=== PATIENT | female | born 1970 | race Caucasian/White ===

== ENCOUNTER 2019-12-04 06:23 | Day surgery (SDC) | payer BC ==
[~2019-12-04] VITALS: Ht 154.9 cm; Wt 75.5 kg
[2019-12-04] MEDS ORDERED: NO HOME MEDS (07:21)
[2019-12-04 07:30] VITALS: BP 127/87
[2019-12-04] MEDS ORDERED: LIDOcaine 1%/PF 5ML 10 MG/ML VIAL ONE (07:49)
[2019-12-04] MEDS ORDERED: heparin sodium, porcine/PF 100unit/ml 5ML syringe ONE (07:49)
[2019-12-04 08:20] LABS: BASOPHILS % (AUTO) 0.6 % (0-1); EOSINOPHILS # (AUTO) 0.1 X10'3 (0-0.9); EOSINOPHILS % (AUTO) 0.9 % (0-6); LYMPHOCYTES # (AUTO) 1.2 X10'3 (1.1-4.8); LYMPHOCYTES % (AUTO) 16.8 % (21-51); MEAN CORPUSCULAR HEMOGLOBIN 27.8 PG (27.0-31.0); MEAN CORPUSCULAR HGB CONC 33.2 g/dL (33.0-36.5); MEAN CORPUSCULAR VOLUME 83.9 FL (78-98); MONOCYTES # (AUTO) 0.4 X10'3 (0-0.9); MONOCYTES % (AUTO) 5.9 % (2-12); NEUTROPHILS # (AUTO) 5.5 X10'3 (1.8-7.7); NEUTROPHILS % (AUTO) 75.8 % (42-75); PRE OP HEMATOCRIT 39.2 % (35.0-45.0); PRE OP PLATELET COUNT 355 X10'3 (140-440); RED BLOOD COUNT 4.67 X10'6 (4.20-5.60); RED CELL DISTRIBUTION WIDTH 13.5 % (11.5-14.5)
[2019-12-04] MEDS ORDERED: midazolam 2 mg/2 ml injection ONE ×2 (08:58→09:03)
[2019-12-04] MEDS ORDERED: fentaNYL/PF 50MCG/1 ML 2ML syringe ONE (08:58)
[2019-12-04 09:59] LABS: ALBUMIN 4.3 G/DL (3.4-5.0); ANION GAP 8 (8-16); BLOOD UREA NITROGEN 7 MG/DL (7-18); BUN/CREATININE RATIO 9.7 (6.6-38.0); CALCIUM 9.5 MG/DL (8.5-10.1); CHLORIDE 103 MMOL/L (99-107); CREATININE 0.72 MG/DL (0.40-0.90); GLUCOSE 103 MG/DL (70-104); POTASSIUM 3.6 MMOL/L (3.5-5.1); SODIUM 140 MMOL/L (135-145); TOTAL CARBON DIOXIDE 29.4 MMOL/L (24-32); eGFR 87 ML/MIN
[2019-12-04 10:00] VITALS: BP 143/49
[2019-12-04 10:16] VITALS: BP 117/59
[2019-12-04 10:30] VITALS: BP 112/77
[2019-12-04 10:41] VITALS: BP 131/85
== END 2019-12-04 11:00 | disposition home or self-care (01) ==
LOC: SSTAY O 06:23
PROVIDERS: ATTEND Radiology Diagnostic Radiology
DX: R59.0 Localized enlarged lymph nodes (principal); C53.9 Malignant neoplasm of cervix uteri, unspecified; Z20.828 Contact with and (suspected) exposure to other viral communicable diseases
CPT/HCPCS: 36415; 36561; 38505; 76937; 76942; 77001; 80048; 85025; 87635; 99152; 99153; C1769; C1788; C1894; J1642; J2250; J3010; 20206